=== PATIENT | female | born 1965 | race Caucasian/White ===

== ENCOUNTER 2017-09-10 06:34 | Day surgery (SDC) | payer OTHER ==
[2017-09-10 07:08] VITALS: BMI 35.6
[2017-09-10 07:20] VITALS: TEMP 97.3
--- NOTE | 2017-09-10 07:50 | CP.SDSHP ---
Same Day Surgery H & P - History Proposed Procedure: COLONSCOPY Pre-Op Diagnosis: SEE NOTES - Previous Medical/Surgical History Cardiac: Hypertension Pulmonary: Asthma Endocrine/Metabolic: Diabetes, Other Neuro: Other Misc: Other Previous Surgical History: S/P HYSTRECTOMY - Allergies Allergies: Allergies No Known Allergies Allergy (Verified 10/11/14 09:27) - Physical Exam General Appearance: N Vital Signs: Vital Signs 09/10/17 07:09 Temperature 97.3 F L Pulse Rate 65 Respiratory 19 Rate Blood Pressure 132/70 O2 Sat by Pulse 99 Oximetry Mental Status: Alert & Oriented x3 Neuro: WNL Heart: Other Lungs: Other GI: WNL - {Optional Preform as Required} Breast: WNL Abdomen: Other Rectal: WNL Integument: WNL : Other Ortho: WNL ENT: WNL - Impression Pt. Evaluated Today:Candidate for Anesthesia & Procedure: Yes - Date & Time Time: 07:50 Short Stay Discharge - Short Stay Discharge Admitting Diagnosis/Reason for Visit: ENCOUNTER FOR SCREENING FOR MALIGNANT NEOPLASM OF Disposition: HOME/ ROUTINE
[2017-09-10] MEDS ORDERED: Propofol 10 mg/ml Inj (20 ML) ONE (07:52)
[2017-09-10] MEDS ORDERED: Lactated Ringer's 500 ML IV SCH (08:00)
[2017-09-10 08:33] VITALS: O2SAT 98
[2017-09-10] MEDS ORDERED: Belladonna-Phenobarbital PO ONE (08:40)
[2017-09-10 09:10] VITALS: RESP 19
[2017-09-10 09:58] VITALS: BP 118/67; PULSE 66
== END 2017-09-10 09:34 | disposition home or self-care (01) ==
LOC: C.ENDO 06:34
PROVIDERS: ATTEND Specialist
DX: Z12.11 Encounter for screening for malignant neoplasm of colon (principal); K57.30 Diverticulosis of large intestine without perforation or abscess without bleeding; K58.9 Irritable bowel syndrome, unspecified; K64.4 Residual hemorrhoidal skin tags; K64.8 Other hemorrhoids; I10 Essential (primary) hypertension; J45.909 Unspecified asthma, uncomplicated; E11.9 Type 2 diabetes mellitus without complications; Z79.4 Long term (current) use of insulin
CPT/HCPCS: 45380; 82948; 88305; J2704; J3010; J7120